=== PATIENT | male | born 1980 | race Caucasian/White ===

== ENCOUNTER 2020-07-06 09:45 | Emergency (ER) | payer OTHER ==
[~2020-07-06] VITALS: Ht 182.9 cm; Wt 79.5 kg
[2020-07-06] MEDS ORDERED: LORazepam 2 mg/ml vial IV ONE (10:20)
[2020-07-06] MEDS ORDERED: normal saline 1000ML IV soln IVB ONE (10:20)
[2020-07-06 10:43] LABS: BASOPHILS # (AUTO) 0.1 X10'3 (0-0.2); BASOPHILS % (AUTO) 0.7 % (0-1); EOSINOPHILS % (AUTO) 0.4 % (0-6); HEMOGLOBIN 15.7 g/dl (14.0-17.9); LYMPHOCYTES # (AUTO) 1.3 X10'3 (1.1-4.8); LYMPHOCYTES % (AUTO) 16.4 % (21-51); MEAN CORPUSCULAR HEMOGLOBIN 29.5 PG (27.0-31.0); MEAN CORPUSCULAR HGB CONC 34.1 g/dL (33.0-36.5); MEAN CORPUSCULAR VOLUME 86.5 FL (78-98); MEAN PLATELET VOLUME 8.7 FL (7.4-10.4); MONOCYTES # (AUTO) 0.5 X10'3 (0-0.9); MONOCYTES % (AUTO) 5.6 % (2-12); NEUTROPHILS # (AUTO) 6.3 X10'3 (1.8-7.7); NEUTROPHILS % (AUTO) 76.9 % (42-75); PLATELET COUNT 247 X10'3 (140-440); RED BLOOD COUNT 5.32 X10'6 (4.70-6.10); RED CELL DISTRIBUTION WIDTH 12.7 % (11.5-14.5); WHITE BLOOD COUNT 8.1 X10'3 (4.5-11.0)
[2020-07-06 10:53] LABS: ALANINE AMINOTRANSFERASE 44 U/L (12-78); ALBUMIN 4.6 G/DL (3.4-5.0); ALBUMIN/GLOBULIN RATIO 1.5 (1.1-1.5); ALKALINE PHOSPHATASE 66 IU/L (46-116); ANION GAP 5 (8-16); ASPARTATE AMINO TRANSFERASE 24 U/L (10-37); BILIRUBIN,TOTAL 0.6 MG/DL (0.1-1.0); BLOOD UREA NITROGEN 11 MG/DL (7-18); BUN/CREATININE RATIO 10.8 (5.4-32.0); CALCIUM 9.4 MG/DL (8.5-10.1); CHLORIDE 103 MMOL/L (99-107); CREATININE 1.02 MG/DL (0.60-1.10); GLUCOSE 114 MG/DL (70-104); POTASSIUM 3.1 MMOL/L (3.5-5.1); SODIUM 137 MMOL/L (135-145); TOTAL CARBON DIOXIDE 28.7 MMOL/L (24-32); TOTAL PROTEIN 7.7 G/DL (6.4-8.2); eGFR 80 ML/MIN
[2020-07-06] MEDS ORDERED: cloNIDine 0.1 mg tablet PO ONE (11:05)
[2020-07-06] MEDS ORDERED: potassium chloride 10mEq ER tablet PO STA (11:14)
--- NOTE | 2020-07-06 11:50 | NUR ---
PA aware of BP, comfortable with discharge.
[2020-07-06 11:51] VITALS: BP 203/142
== END 2020-07-06 11:57 | disposition home or self-care (01) ==
LOC: ER 09:46
DX: F41.9 Anxiety disorder, unspecified (principal); I10 Essential (primary) hypertension; F15.90 Other stimulant use, unspecified, uncomplicated; Z88.0 Allergy status to penicillin
CPT/HCPCS: 36415; 80053; 84484; 85025; 93005; 96361; 96374; 99284; J2060; J7030